=== PATIENT | male | born 1940 | race Caucasian/White ===

== ENCOUNTER 2017-06-24 14:33 | Emergency (ER) | payer MEDICARE, BC ==
[2017-06-24 15:03] VITALS: BP 156/94
[2017-06-24] MEDS ORDERED: Tetan/Diph/Pertus SYR(Tdap)* 0.5 ML SYR(BOOSTRIX) use SYR IM ONE ×2 (15:40→16:17)
--- NOTE | 2017-07-22 14:57 | UC ---
Skin Complaint HPI - HPI Summary HPI Summary: Cut finger last night on a serrated knife---wound reopened today --is concerned that tetanus is not updated - History of Current Complaint Chief Complaint: UCLaceration Time Seen by Provider: 06/24/17 15:30 Stated Complaint: FINGER COMPLAINT Hx Obtained From: Patient Onset/Duration: Sudden Onset, Lasting Days - 1, Still Present Timing: Constant Onset Severity: Moderate Current Severity: None Pain Intensity: 0 Pain Scale Used: 0-10 Numeric Location: Discrete Aggravating Factor(s): Nothing Alleviating Factor(s): Nothing Associated Signs & Symptoms: Positive: Negative Related History: Trauma - Allergy/Home Medications Allergies/Adverse Reactions: Allergies Allergy/AdvReac Type Severity Reaction Status Date / Time MS Lisinopril [Lisinopril] Allergy Coughing Verified 06/24/17 14:52 Review of Systems Constitutional: Negative Skin: Other - laceration left thumb Eyes: Negative ENT: Negative Respiratory: Negative Cardiovascular: Negative Gastrointestinal: Negative Genitourinary: Negative Motor: Negative Neurovascular: Negative Musculoskeletal: Negative Neurological: Negative Psychological: Negative Is Patient Immunocompromised?: No All Other Systems Reviewed And Are Negative: Yes PMH/Surg Hx/FS Hx/Imm Hx Previously Healthy: No Cardiovascular History: Cardiac Disease, Hypertension GI/ History: Gastroesophageal Reflux - Surgical History Surgical History: Yes - Social History Occupation: Retired Lives: With Family Alcohol Use: Daily Alcohol Amount: 2 drinks/ day Substance Use Type: None Smoking Status (MU): Never Smoked Tobacco - Immunization History Most Recent Influenza Vaccination: 2012 Most Recent Tetanus Shot: 2006 Most Recent Pneumonia Vaccination: 2005 Physical Exam Triage Information Reviewed: Yes Appearance: Well-Appearing, No Pain Distress, Well-Nourished Vital Signs: Initial Vital Signs Temp 97.9 F 06/24/17 14:55 Pulse 61 06/24/17 14:55 Resp 14 06/24/17 14:55 BP 156/94 06/24/17 14:55 Pulse Ox 99 06/24/17 14:55 Vital Signs Reviewed: Yes Eye Exam: Normal Eyes: Positive: Conjunctiva Clear ENT Exam: Normal ENT: Positive: Normal ENT inspection, Hearing grossly normal. Negative: Trismus , Muffled voice, Hoarse voice Dental Exam: Normal Neck exam: Normal Neck: Positive: Supple, Nontender Respiratory Exam: Normal Respiratory: Positive: Chest non-tender, No respiratory distress, No accessory muscle use Cardiovascular Exam: Normal Cardiovascular: Positive: RRR, Pulses Normal, Brisk Capillary Refill Musculoskeletal Exam: Normal Musculoskeletal: Positive: Strength Intact, ROM Intact, No Edema Neurological Exam: Normal Neurological: Positive: Alert, Muscle Tone Normal Psychological Exam: Normal Psychological: Positive: Normal Response To Family Skin Exam: Normal - on left thumb approximated and not bleeding, Other Skin: Positive: Other Course/Dx - Course Course Of Treatment: up date tetanus, dsd wash daily observe for s/s of infection follow with pcp - Diagnoses Provider Diagnoses: Left thumb laceration no repair, up date tetanus, hypertension in poor control Discharge - Discharge Plan Condition: Stable Disposition: HOME Patient Education Materials: Diphtheria/Acellular Pertussis/Tetanus Booster Vaccine (By injection), Skin Avulsion (ED) Referrals: Yuan Ybarra MD [Primary Care Provider] - If Needed
== END 2017-06-24 16:24 | disposition home or self-care (01) ==
LOC: UCEAST 14:33
DX: S61.012A Laceration without foreign body of left thumb without damage to nail, initial encounter (principal); W26.0XXA Contact with knife, initial encounter; Y93.9 Activity, unspecified; Y92.9 Unspecified place or not applicable; Z23 Encounter for immunization; I11.9 Hypertensive heart disease without heart failure; K21.9 Gastro-esophageal reflux disease without esophagitis; Z88.8 Allergy status to other drugs, medicaments and biological substances
CPT/HCPCS: 90715; 99212; G0463

== ENCOUNTER 2017-12-02 07:30 | Inpatient (IN) | payer MEDICARE, BC ==
--- NOTE | 2017-11-19 13:06 | RAD ---
INDICATION: Hypertension COMPARISON: July 03, 2011 TECHNIQUE: PA and lateral dual-energy views were obtained. FINDINGS: Bones/Soft Tissues: There are no acute bony findings. There are clips in left axilla Cardiomediastinal: The cardiomediastinal silhouette is normal. Lungs: There are no infiltrates. There is mild hyperinflation Pleura: There are no pleural effusions. Other: None IMPRESSION: NO ACTIVE DISEASE.
--- NOTE | 2017-11-19 21:20 | HP ---
HISTORY AND PHYSICAL: DATE OF ADMISSION/SURGERY: 12/02/17 DATE OF OFFICE VISIT: 11/19/17 SURGEON: Ailssa Morel MD * (DICTATED BY BERNARDO RODAS) PROCEDURE: Right total knee arthroplasty. CHIEF COMPLAINT: Right knee pain. HISTORY OF PRESENT ILLNESS: Mr. Cruz is a 77-year-old gentleman with continued complaints of right knee pain. He has failed conservative management and elected to proceed with a right total knee arthroplasty, which is scheduled for 12/02/[address] Morel. PAST MEDICAL HISTORY: Hypertension, mitral valve regurgitation, thoracic aortic ectasia, GERD, cardiac stent, and melanoma. PAST SURGICAL HISTORY: Cardiac stent placement, melanoma removal, tonsillectomy , and adenoidectomy. CURRENT MEDICATIONS: 1. Toprol 50 mg daily. 2. Aspirin 81 mg daily. 3. Atorvastatin calcium 80 mg daily. 4. Nitrostat 0.4 mg sublingual as needed. 5. Losartan potassium/hydrochlorothiazide 100/12.5 mg every morning. 6. Omeprazole 40 mg daily. 7. Multivitamin. 8. Felodipine ER 2.5 mg daily. 9. Tylenol Extra Strength as needed. ALLERGIES: To ENALAPRIL. FAMILY HISTORY: Coronary artery disease, diabetes, cancer, and stroke. SOCIAL HISTORY: He is a 77-year-old gentleman, lives with his . He does not smoke or use drugs. He uses alcohol occasionally. REVIEW OF SYSTEMS: A complete 14-point review of systems was reviewed with the patient. It is positive for GERD. He denies history of DVT, PE, hepatitis, HIV , or anesthesia problems. PHYSICAL EXAMINATION GENERAL: He is well developed, well nourished, in no acute distress. VITAL SIGNS: He stands 71 inches tall, weighs 275 pounds. His blood pressure is 119/69 and heart rate is 72. HEENT: Normocephalic, atraumatic. NECK: Supple. No palpable lymph nodes. PULMONARY: The lungs are clear to auscultation bilaterally. CARDIO: Regular rate and rhythm. Strong S1, S2. ABDOMEN: Soft, nontender, nondistended. NEUROLOGICAL: Alert and oriented x3. MUSCULOSKELETAL: Right lower extremity, the skin is intact. There are no open wounds or abrasions. Some tenderness over the medial and lateral joint line. There is a moderate joint effusion. Range of motion is 10 to 120 degrees of flexion with a 15-degree valgus deformity and MCL laxity. 2+ dorsalis pedis pulses. Intact sensation in his lower extremity. Muscle group strengths are intact at 5/5. ASSESSMENT AND PLAN: Mr. Cruz is a 77-year-old gentleman with end-stage osteoarthritis of his right knee. He has failed conservative management and elected to proceed with a right total knee arthroplasty, which is scheduled for 12/02/[address] Morel discussed the risks and benefits of the surgery at today's visit and all of his questions were answered. He will follow up with Dr. Morel 2 weeks after the surgery. BERNARDO RODAS [id number]/CPS #: [id number] MTDD
[~2017-12-02 07:30] MED LIST: Buffered Lidocaine 0.9% SYRIN* 5 ML/SYR SYRINGE INTRADERM ONE; Dexamethasone TAB* 4 MG PO ONE; DiMENhydriNATE IV* 50 MG/ML VIAL IV PUSH PRN; Famotidine IV* 10 MG/ML 2 ML (20 mg) IV ONE; Gabapentin CAP(*) 300 MG PO ONE; Morphine INJ* 2 MG/ML 1 ML CARPUJECT IV PRN; Naloxone* 0.4 MG/ML 1 ML VIAL IV PRN; Ondansetron INJ* 2 MG/ML VIAL ONE; PROCHLORPERAZINE INJ 5 MG/ML 2 ML VIAL IV PRN; Scopolamine 1.5 mg* PATCH TRANSDERM PRN; fentaNYL* 50 MCG/ML 2 ML VIAL (100 MCG VIAL) IV PRN
[2017-12-02] MEDS ORDERED: Gabapentin CAP(*) 100 MG ONE (08:42)
[2017-12-02] MEDS ORDERED: Dexamethasone TAB* 4 MG ONE (08:43)
[2017-12-02] MEDS ORDERED: Famotidine IV* 10 MG/ML 2 ML (20 mg) ONE (08:43)
[2017-12-02] MEDS ORDERED: ceFAZolin 1 GM in Dextrose (*) 1 GM/50 ML BAG IVPB ONE (08:43)
[2017-12-02] MEDS ORDERED: Ondansetron ODT TAB* 4 MG ONE (08:43)
[2017-12-02] MEDS ORDERED: Gabapentin CAP(*) 400 MG PO ONE (08:43)
[2017-12-02] MEDS ORDERED: ceFAZolin 2 GM PREMIX (*) 2 GM/50 ML BAG IVPB ONE (08:44)
[2017-12-02] MEDS ORDERED: fentaNYL* 50 MCG/ML 2 ML VIAL (100 MCG VIAL) ONE (08:55)
[2017-12-02] MEDS ORDERED: Midazolam* 1 MG/ML 10 ML VIAL (10 MG) ONE (08:55)
[2017-12-02] MEDS ORDERED: KETAMINE HCL* 50 MG/ML 10 ML VIAL ONE (08:55)
[2017-12-02] MEDS ORDERED: Tranexamic Acid 1,000 MG/10 ML SDV IV ONE (11:11)
[2017-12-02] MEDS ORDERED: Bupivacaine 0.5% SDV PF* 30ML VIAL ONE (12:48)
[2017-12-02] MEDS ORDERED: Bupivacaine 0.5% PF 10 ML VIAL INJ ONE (12:54)
[2017-12-02] MEDS ORDERED: Metoprolol Tartrate IV* 1 MG/ML 5 ML VIAL ONE (12:54)
[2017-12-02] MEDS ORDERED: hydrALAZINE IV* 20 MG/ML VIAL ONE (12:54)
[2017-12-02] MEDS ORDERED: Labetalol IV* 5 MG/ML 20 ML VIAL ONE (13:28)
[2017-12-02] MEDS ORDERED: diPHENhydraMINE IV* 50 MG/ML 1 ml VIAL (BENADRYL) IV PRN (14:16)
[2017-12-02] MEDS ORDERED: Morphine VIAL* 4 MG/ML VIAL (1 ml vial) IV PRN (14:16)
[2017-12-02] MEDS ORDERED: Acetaminophen TAB* 325 MG PO PRN (14:16)
[2017-12-02] MEDS ORDERED: Ondansetron 40 MG VIAL* 2 MG/ML 20 ML VIAL IV PRN (14:16)
[2017-12-02] MEDS ORDERED: Bisacodyl SUPP* 10 MG SUPP PR PRN (14:16)
[2017-12-02] MEDS ORDERED: Magnesium Hydroxide LIQ* 30 ML UDC PO PRN (14:16)
--- NOTE | 2017-12-02 15:21 | RAD ---
INDICATION: Postoperative right knee arthroplasty COMPARISON: June 30, 2017 TECHNIQUE: AP and lateral views were obtained. FINDINGS: There is right knee arthroplasty. Both femoral and tibial components appear well seated. There is no overlying cooling jacket IMPRESSION: RIGHT KNEE ARTHROPLASTY.
[2017-12-02] MEDS ORDERED: Warfarin TAB(*) 6 MG PO ONE (17:00)
[2017-12-02] MEDS: oxyCODONE/Acetamin 5/325 MG* TAB PO PRN (18:46)
[2017-12-02] MEDS: oxyCODONE TAB* 5 MG TAB PO PRN (21:28)
[2017-12-02] MEDS: Docusate CAP* 100 MG PO SCH (21:28)
[2017-12-02] MEDS: ceFAZolin 1 GM in Dextrose (*) 1 GM/50 ML BAG IVPB SCH (21:29)
[2017-12-02] MEDS: Magnesium Hydroxide LIQ* 30 ML UDC PO SCH (21:35)
--- NOTE | 2017-12-02 21:38 | CONS ---
CC: Dr. Morel* CONSULTATION REPORT: DATE OF CONSULT: 12/02/17 ATTENDING HOSPITALIST: Portillo Ortiz MD REFERRED FROM: Dr. Morel from Orthopedics. PRIMARY CARE PHYSICIAN: Lexie Ortiz MD PROCEDURES DONE: Right total knee arthroplasty. CHIEF COMPLAINT: 1. Right knee pain. 2. Medical co-management. HISTORY OF PRESENT ILLNESS: Mr. Cruz is a pleasant 77-year-old gentleman who has past medical history significant for hypertension, [place] with angiography and cardiac stent as well as history of hyperlipidemia and mitral valve regurgitation who was seen by the orthopedic group of [facility] in consideration for right knee arthroplasty. The patient has been suffering from chronic right knee pain and osteoarthritis for long time. He had tried multiple conservative measures to control his pain that unfortunately failed. He was evaluated by the orthopedic group and found to be a good candidate for right knee arthroplasty to be performed on a later date. The patient was admitted earlier today and was taken to the operating room where he had a right knee arthroplasty by Dr. Morel that was essentially unremarkable. During his postoperative period, he was comfortable and we were asked to see the patient for medical co-management given his past medical history. At the time of consultation, he appears to be comfortable and denies any pain. He denies any chest discomfort, palpitation, abdominal pain, nausea, or vomiting. PAST MEDICAL HISTORY: As mentioned above, significant for: 1. Hypertension. 2. Hyperlipidemia. 3. Coronary artery disease. 4. GERD. 5. Thoracic aortic ectasia. 6. Mitral valve regurgitation. 7. History of chest wall melanoma. PAST SURGICAL HISTORY: Significant for: 1. Cardiac stent placement back in 2014. 2. Melanoma removal from chest wall. 3. Tonsillectomy. 4. Adenoidectomy. 5. Most recently, right total knee arthroplasty. CURRENT MEDICATIONS: His medications at home include: 1. Aspirin 81 mg p.o. daily. 2. Lipitor 80 mg p.o. daily. 3. Felodipine 2.5 mg p.o. q.a.m. 4. Losartan/hydrochlorothiazide 100/12.5 one tablet p.o. daily. 5. Metoprolol 50 mg p.o. daily. 6. Multivitamin 1 tablet p.o. daily. 7. Nitroglycerin 0.4 mg sublingual every 5 minutes as needed for anginal pain. 8. Omeprazole 40 mg p.o. daily. ALLERGIES: He is allergic to ENALAPRIL and LISINOPRIL. SOCIAL HISTORY: The patient is a retired [employer] professor. He lives with his . He denies smoking and he drinks alcohol occasionally. His is a healthcare proxy carrier. FAMILY HISTORY: Significant for coronary artery disease, diabetes, and stroke. REVIEW OF SYSTEMS: See HPI, otherwise 14-point review of systems were reviewed and otherwise negative. PHYSICAL EXAMINATION: General: He is a pleasant, obese gentleman, healthy appearing and in no acute distress or discomfort at the time of consultation. Vitals revealed temperature of 97.2, pulse of 77, blood pressure of 116/71, respirations of 17, and O2 sat of 95% on 4 L oxygen. HEENT: Head is normocephalic, atraumatic. Sclerae anicteric. PERRLA. EOMs intact. Oropharynx is pink and moist. Neck: Supple. Trachea midline. No cervical adenopathy or thyromegaly. Lungs: Clear to auscultation bilaterally. Heart: Regular rate and rhythm. Normal S1 and S2 without rubs, murmurs or gallops. Back: With normal curvature. No CVA tenderness. Abdomen: Soft, nontender, and nondistended. No hernias, masses, or hepatosplenomegaly. Extremities: Without cyanosis, clubbing, or edema. Right lower extremity with Johnson wrap surrounding the knee as well as circulating cooling device. Sensation and pedal pulse intact distally. Neurologic: He is alert and oriented x3, otherwise neurological exam is grossly normal. Rectal exam deferred at this time. ASSESSMENT: A 77-year-old gentleman with past medical history significant for hypertension, hyperlipidemia, coronary artery disease for which he had cardiac catheterization with stent placement back in 2014 who is postop day #0 status post right total knee arthroplasty. RECOMMENDATION AND PLANS: 1. Status post right total knee arthroplasty. Management is per ortho team. The patient will likely initiate a PT/OT evaluation and treatment starting tomorrow. He will be anticoagulated per orthopedic group. He will start on Lovenox subcu and bridge to Coumadin. He appears to be comfortable and he has no complaints of pain at this time. 2. Hypertension. We will continue his metoprolol, calcium channel lee as well as losartan. 3. Coronary artery disease. We will continue his low dose of aspirin as well as metoprolol. 4. Sleep apnea. The patient per history has episodes of snoring per ; however, he has never been tested for sleep apnea before. We will continue monitoring him and provide oxygen supplementation likely to use CPAP at night if indicated. 5. DVT prophylaxis. Per ortho team, subcu Lovenox and bridging to p.o. Coumadin prior to discharge. 6. Code status. He is a full code. TIME SPENT: Approximately 45 minutes was spent admitting this patient with greater than 50% taking history and performing physical exam. I discussed the case with Dr. Ortiz who agreed to plans of care and we will follow him up accordingly. Thank you for this consultation. BERNARDO FIELDS [id number]/CPS #: [id number] MTDD
[2017-12-03] MEDS: oxyCODONE/Acetamin 5/325 MG* TAB PO PRN ×5 (00:45→20:11)
[2017-12-03] MEDS: ceFAZolin 1 GM in Dextrose (*) 1 GM/50 ML BAG IVPB SCH ×2 (04:04→12:12)
[2017-12-03] MEDS: Omeprazole CAP* 20 MG PO SCH (07:08)
[2017-12-03 07:16] LABS: Hematocrit 39 % (42-52); Hemoglobin 13.4 g/dl (14.0-18.0); Mean Platelet Volume 8.5 um3 (7.4-10.4); Platelet Count 193 10^3/ul (150-450)
[2017-12-03 07:19] LABS: INR 1.06 (0.77-1.02)
[2017-12-03 07:23] LABS: EGFR Non-African American 99.7 (>60)
[2017-12-03] MEDS: Atorvastatin* 80 MG TAB PO SCH (08:21)
[2017-12-03] MEDS: Vitamin THERAPEUTIC TAB PO SCH (08:21)
[2017-12-03] MEDS: Magnesium Hydroxide LIQ* 30 ML UDC PO SCH ×2 (08:21→20:11)
[2017-12-03] MEDS: amLODIPine TAB* 5 MG PO SCH (08:21)
[2017-12-03] MEDS: Docusate CAP* 100 MG PO SCH ×2 (08:21→20:12)
[2017-12-03] MEDS: Hydrochlorothiazide TAB* 25 MG PO SCH (08:22)
[2017-12-03] MEDS: Metoprolol Succinate XL TAB* 50 MG PO SCH (08:22)
[2017-12-03] MEDS: Losartan TAB* 25 MG PO SCH (08:23)
[2017-12-03] MEDS: Aspirin EC TAB* 81 MG TAB.EC PO SCH (08:23)
--- NOTE | 2017-12-03 11:55 | PN ---
Progress Note - Progress Note Date of Service: 12/03/17 SOAP: Subjective: [Pt seen this am sitting up in chair. States pain is 4/10. States he slept for a few hours last night. No complaints at this point. Denies any chest pain, SOB , numbness, tingling, nausea or vomiting. ] Objective: [General: pt is awake, alert and oriented. NAD MSK, RLE: Dressing c/d/i, +df/pf, no pain with palpation of calf. sensation intact to light touch. 2+ DP pulse ] Vital Signs Temp 97.8 F 12/03/17 07:19 Pulse 78 12/03/17 07:19 Resp 18 12/03/17 09:59 BP 156/85 12/03/17 07:19 Pulse Ox 93 12/03/17 09:59 Intake & Output 12/02/17 12/03/17 12/03/17 18:59 06:59 18:59 Intake Total 1999 1589 225 Output Total 2049 1625 Balance -50 -36 225 Weight 278 lb Intake: IV Fluids 1999 984 LR 1999 984 IVPB 55 ABX - CEFAZOLIN 55 Oral 550 225 Output: [place] 1800 1625 Residual 50 [place] 16 Fr 50 Estimated Blood Loss 200 Other: # Bowel Movements 0 Assessment: [POD 1 RTKA ] Plan: [- continue with current pain medication - 4mg of warfarin this evening - continue with PT/OT - possible dc tomorrow should he meet all goals. ]
[2017-12-03] MEDS: Enoxaparin(*) 30 MG/0.3 ML SYR SUBCUT SCH (12:13)
--- NOTE | 2017-12-03 14:31 | PN ---
Subjective Date of Service: 12/03/17 Interval History: Patient in significant pain but states it is worse with movement but is tolerable. Patient has had flores out and is urinating well. Patient has been passing gas and denies CP, SOB, Dizziness, F/C, N/V, abdominal pain, dysuria, palpitations, numbness or tingling, or other pain. Patient has symptoms of CHEL but did not desaturate to a large degree on overnight oximetry. Family History: Unchanged from Admission Social History: Unchanged from Admission Past Medical History: Unchanged from Admission Objective Active Medications: Acetaminophen (Tylenol Tab*) 650 mg PO Q4H PRN PRN Reason: PAIN OR TEMPERATURE Amlodipine Besylate (Norvasc Tab*) 2.5 mg PO [facility]; Protocol Last Admin: 12/03/17 08:21 Dose: 2.5 mg Aspirin (Aspirin Ec Tab*) 81 mg PO [facility] Last Admin: 12/03/17 08:23 Dose: 81 mg Atorvastatin Calcium (Lipitor*) 80 mg PO [facility] Last Admin: 12/03/17 08:21 Dose: 80 mg Bisacodyl (Dulcolax Supp*) 10 mg NC DAILY PRN PRN Reason: constipation Diphenhydramine HCl (Benadryl Iv*) 25 mg IV Q6H PRN PRN Reason: itching Docusate Sodium (Colace Cap*) 100 mg PO BID [facility] Last Admin: 12/03/17 08:21 Dose: 100 mg Enoxaparin Sodium (Lovenox(*)) 30 mg SUBCUT Q24H [facility] Last Admin: 12/03/17 12:13 Dose: 30 mg Hydrochlorothiazide (Hydrodiuril Tab*) 12.5 mg PO [facility] Last Admin: 12/03/17 08:22 Dose: 12.5 mg Lactated Ringer's (Lactated Ringers 1000 Ml Bag*) 1,000 mls @ 100 mls/hr IV PER RATE [facility] Last Admin: 12/03/17 03:23 Dose: 100 mls/hr Lactulose (Lactulose*) 30 ml PO Q6H PRN PRN Reason: constipation Losartan Potassium (Cozaar Tab*) 100 mg PO [facility] Last Admin: 12/03/17 08:23 Dose: 100 mg Magnesium Hydroxide (Milk Of Magnesia Liq*) 30 ml PO BID [facility] Last Admin: 12/03/17 08:21 Dose: 30 ml Magnesium Hydroxide (Milk Of Magnesia Liq*) 30 ml PO Q6H PRN PRN Reason: constipation Metoprolol Succinate (Toprol Xl Tab*) 50 mg PO QAM [facility] Last Admin: 12/03/17 08:22 Dose: 50 mg Morphine Sulfate (Morphine Vial*) 2 mg IV Q2H PRN PRN Reason: PAIN Multivitamins (Theragran Tab*) 1 tab PO DAILY [facility] Last Admin: 12/03/17 08:21 Dose: 1 tab Omeprazole (Prilosec Cap*) 40 mg PO QAM@0730 [facility] Last Admin: 12/03/17 07:08 Dose: 40 mg Ondansetron HCl (Zofran 40 Mg Vial*) 4 mg IV Q6H PRN PRN Reason: nausea Oxycodone HCl (Roxycodone Tab*) 10 mg PO Q4H PRN PRN Reason: PAIN - SEVERE Last Admin: 12/02/17 21:28 Dose: 10 mg Oxycodone/Acetaminophen (Percocet 5/325 Tab*) 2 tab PO Q4H PRN PRN Reason: PAIN Last Admin: 12/03/17 09:58 Dose: 2 tab Oxycodone/Acetaminophen (Percocet 5/325 Tab*) 1 tab PO Q4H PRN PRN Reason: PAIN Last Admin: 12/02/17 18:46 Dose: 1 tab Pharmacy Profile Note (Scopolamine Patch Remove*) 1 note PATCH OFF Q72H ONE Stop: 12/05/17 05:47 Vital Signs - 8 hr 12/03/17 12/03/17 12/03/17 07:08 07:19 07:58 Temperature 97.8 F Pulse Rate 78 Respiratory 18 17 17 Rate Blood Pressure 156/85 (mmHg) O2 Sat by Pulse 96 93 Oximetry 12/03/17 12/03/17 12/03/17 08:00 09:58 09:59 Temperature Pulse Rate Respiratory 18 18 18 Rate Blood Pressure (mmHg) O2 Sat by Pulse 93 Oximetry 12/03/17 12/03/17 12/03/17 11:21 12:00 12:11 Temperature 97.5 F Pulse Rate 70 Respiratory 17 18 18 Rate Blood Pressure 123/63 (mmHg) O2 Sat by Pulse 96 95 Oximetry Oxygen Devices in Use Now: None Appearance: Patient is a 77yo male who appears stated age and is sitting in the bed in NAD. Eyes: No Scleral Icterus, PERRLA Ears/Nose/Mouth/Throat: NL Teeth, Lips, Gums, Clear Oropharnyx, Mucous Membranes Moist Neck: NL Appearance and Movements; NL JVP, Trachea Midline Respiratory: Symmetrical Chest Expansion and Respiratory Effort, Clear to Auscultation Cardiovascular: NL Sounds; No Murmurs; No JVD, RRR, - - 1+ edema in RLE Abdominal: NL Sounds; No Tenderness; No Distention, No Hepatosplenomegaly Lymphatic: No Cervical Adenopathy Extremities: No Clubbing, Cyanosis, - - Right Knee incision covered in bulky dressing. Skin: No Rash or Ulcers, No Nodules or Sclerosis Neurological: Alert and Oriented x 3, NL Sensation, NL Muscle Strength and Tone , - - CN II-XII intact. Result Diagrams: 12/03/17 06:59 12/03/17 06:59 Assess/Plan/Problems-Billing Assessment: Patient is a 77yo Male with a PMH for HTN, HLD, MO, MVR, who is S/P RTKA and is doing well. - Patient Problems (1) Post-operative state Current Visit: Yes Status: Acute Code(s): Z98.890 - OTHER SPECIFIED POSTPROCEDURAL STATES SNOMED Code(s): 82681680 Comment: S/P RTKA, Management per primary team. H/H decreased to an expected degree, Will monitor. Pain better controlled. Urinating with flores out. No BM. PT/OT (2) HLD (hyperlipidemia) Current Visit: Yes Status: Acute Code(s): E78.5 - HYPERLIPIDEMIA, UNSPECIFIED SNOMED Code(s): 67669334 Comment: Continue statin. (3) HTN (hypertension) Current Visit: Yes Status: Acute Code(s): I10 - ESSENTIAL (PRIMARY) HYPERTENSION SNOMED Code(s): 64330217 Comment: Normotensive, Continue Amlodipine, Metoprolol, Losartan. (4) Snoring Current Visit: Yes Status: Acute Code(s): R06.83 - SNORING SNOMED Code(s) : 63932026 Comment: Monitor for overnight desaturations. Will need formal sleep study on discharge. (5) GERD (gastroesophageal reflux disease) Current Visit: Yes Status: Acute Code(s): K21.9 - GASTRO-ESOPHAGEAL REFLUX DISEASE WITHOUT ESOPHAGITIS SNOMED Code(s): 704511135 Comment: Continue Omeprazole. (6) CAD (coronary artery disease) Current Visit: Yes Status: Acute Code(s): I25.10 - ATHSCL HEART DISEASE OF [place] CORONARY ARTERY W/O ANG PCTRS SNOMED Code(s): 52625383 Comment: S/P MO. Continue ASA, BB, Lipitor, Losartan. No CP. (7) Thoracic aortic ectasia Current Visit: Yes Status: Acute Code(s): I77.810 - THORACIC AORTIC ECTASIA SNOMED Code(s): 945903518374115 Comment: Continue Beta Luna to avoid rapid changes in aortic pressure. (8) DVT prophylaxis Current Visit: Yes Status: Acute Code(s): NNW7087 - SNOMED Code(s): 298935155 Comment: Lovenox to warfarin. (9) Full code status Current Visit: Yes Status: Acute Code(s): Z78.9 - OTHER SPECIFIED HEALTH STATUS SNOMED Code(s): 842952770 Status and Disposition: Inpatient. Disposition per primary team.
[2017-12-03] MEDS ORDERED: Warfarin TAB(*) 4 MG PO ONE (17:07)
--- NOTE | 2017-12-03 21:34 | OP ---
DATE OF OPERATION: 12/02/17 - ROOM #349 DATE OF : 42 SURGEON: Alissa Morel MD NEWSWRITER: BERNARDO Sandoval. Mr. Rivera did help throughout the procedure with preparation of the leg, wound retraction, manipulation of the knee and wound closure. ANESTHESIOLOGIST: Dr. Robin. ANESTHESIA: Spinal. PRE-OP DIAGNOSIS: Severe end-stage degenerative osteoarthritis of the right knee joint with valgus deformity. POST-OP DIAGNOSIS: Severe end-stage degenerative osteoarthritis of the right knee joint with valgus deformity. OPERATIVE PROCEDURE: Right total knee arthroplasty. COMPLICATIONS: None. TOURNIQUET TIME: 44 minutes. ESTIMATED BLOOD LOSS: 200 cc. SPECIMEN: Bone and cartilage from the right knee sent to pathology. HARDWARE USED: This is [employer] cemented total knee arthroplasty hardware. Two packages of Simplex bone cement. For the femur, a size 7 right posterior stabilized Legion Oxinium femoral component. For the tibia, a size 7 Becki II right tibial base plate. For the insert, a 13-mm posterior stabilized articular insert size 7/8 and for the patella, 38-mm 3-peg all poly patella. BRIEF HISTORY/INDICATIONS: Mr. Cruz is a 77-year-old gentleman with years of increasingly severe right knee pain and feelings of instability. He did develop valgus deformity and severe arthritis on x-ray with [id number] contact. He failed conservative treatment with anti-inflammatories, brace wear , intra-articular injections and physical therapy. Due to continued pain and feelings of instability, the patient elected to undergo right total knee arthroplasty. Informed consent was obtained from the patient. He understood the risks of surgery included, but not were not limited to bleeding, infection, damage to nearby structures, continued pain, need for further surgery, intraoperative fracture, nerve palsy, hardware failure or loosening, knee stiffness, loss of motion, stroke, heart attack, blood clot and . He wished to proceed. INTRAOPERATIVE FINDINGS: Intraoperatively, the patient was noted to have significant valgus deformity of 12 degrees. He had recurvatum. He had full thickness cartilage loss in all three compartments with lateral compartment most affected. DESCRIPTION OF PROCEDURE: Mr. Cruz was identified in the preanesthesia unit. His right lower extremity was marked as correct side. Informed consent was signed and placed in the chart. The patient was taken to the operating room and placed under spinal anesthesia. A Eaton catheter was placed. Right lower extremity was prepped and draped in the usual sterile fashion. Preop time-out was made to correctly identify the patient's side and site. Appropriate perioperative antibiotics were given within 1 hour of incision. A midline incision was made with a 10 blade and carried down to the extensor mechanism. A new 10-blade was used to make a standard medial parapatellar arthrotomy. The patella was subluxed laterally. Electrocautery was used to sub -periosteally elevate soft tissue off the superomedial tibia to the mid sagittal plane. The knee was flexed up. A drill was used to enter the distal femur. Intramedullary distal femoral cutting guide was pinned on the distal femur. 9 mm of distal femur were carefully removed with an oscillating saw. Next, the external rotation guide was pinned on the distal femur. Distal femur was sized to a size 7. Size 7 multi-cutting jig was pinned on the distal femur. The four chamfer cuts were made with an oscillating saw. The PCL was completely released. The tibia was subluxed anteriorly. Extramedullary tibial cutting guide was pinned on the proximal tibia. Oscillating saw was used to make the proximal tibial cut perpendicular to the mechanical axis of the tibia. The proximal tibial bone cut was carefully removed. The knee was brought out into full extension. The spacer block had excellent fit. There was medial and lateral ligamentous balancing. Valgus deformity was much improved to anatomic 5 degrees. Flexion and extension gaps were well balanced. The knee was flexed up. Lamina alignment mechanic was placed both medially and laterally. Any remaining meniscus was carefully removed using electrocautery. Posterior osteophytes were removed using a curved osteotome. A size 7 right femoral trial was impacted on to the distal femur and had excellent fit. The box for the posterior stabilized implant was prepared using a reamer and box cut osteotome. Size 7 tibial tray trial with an 11 mm insert trial was placed. The knee was brought through range of motion and had full extension to 130 degrees of flexion. There was satisfactory patellofemoral tracking. Patella was everted. 9 mm of patellar bone and cartilage was carefully removed using an oscillating saw. Patella was sized to a size 38. The patella was prepared using a size 38 guide and drill. The trial 38 patella was placed and the knee was taken through range of motion. The knee had satisfactory patellofemoral tracking. All trials were carefully removed. The tibia was subluxed anteriorly and sized to a size 7. Proximal tibia was prepared using a size 7 keel punch. All bony surfaces were copiously irrigated with sterile saline and dried. Final implants were cemented into place starting with the tibia followed by the femur and lastly the patella. A 13-mm insert trial was placed and the knee was brought out into full extension. The knee was copiously irrigated with sterile saline. Electrocautery was used to obtain meticulous hemostasis. Once the cement had fully cured, the insert trial was removed. Any excess cement was removed from around the capsule and hardware. Final insert chosen was a 13-mm posterior stabilized articular insert Becki II size 7/8. This was locked into position on the tibial tray. Stability of the insert was checked and rechecked and noted to be stable. The knee was copiously irrigated with sterile saline. The extensor mechanism was closed using interrupted #1 Vicryl. The rest of the incisions was closed in a layered fashion using 0 and 2-0 Vicryls. Skin was closed using running 3- 0 nylon suture. Sterile Xeroform, 4x4s and Webril were used to cover the incision. Johnson wrap and cold pack were placed over this. Patient's anesthesia was reversed without difficulty. He was taken to the PACU in stable condition. Intended weightbearing will be weightbearing as tolerated. Intended DVT prophylaxis will be Coumadin with a Lovenox bridge. [id number]/[facility] #: [id number] TRENT
[2017-12-04] MEDS: oxyCODONE/Acetamin 5/325 MG* TAB PO PRN ×3 (00:30→12:02)
[2017-12-04 05:54] LABS: Hematocrit 36 % (42-52); Hemoglobin 12.4 g/dl (14.0-18.0); Mean Platelet Volume 8.4 um3 (7.4-10.4); Platelet Count 165 10^3/ul (150-450)
[2017-12-04 05:58] LABS: INR 1.17 (0.77-1.02)
[2017-12-04] MEDS: Omeprazole CAP* 20 MG PO SCH (07:50)
[2017-12-04] MEDS: Magnesium Hydroxide LIQ* 30 ML UDC PO SCH (08:03)
[2017-12-04] MEDS: amLODIPine TAB* 5 MG PO SCH (08:04)
[2017-12-04] MEDS: Docusate CAP* 100 MG PO SCH (08:04)
[2017-12-04] MEDS: Metoprolol Succinate XL TAB* 50 MG PO SCH (08:04)
[2017-12-04] MEDS: Vitamin THERAPEUTIC TAB PO SCH (08:04)
[2017-12-04] MEDS: Hydrochlorothiazide TAB* 25 MG PO SCH (08:05)
[2017-12-04] MEDS: Atorvastatin* 80 MG TAB PO SCH (08:05)
[2017-12-04] MEDS: Losartan TAB* 25 MG PO SCH (08:06)
[2017-12-04] MEDS: Aspirin EC TAB* 81 MG TAB.EC PO SCH (08:06)
[2017-12-04 11:50] VITALS: BP 121/61
[2017-12-04] MEDS: Enoxaparin(*) 30 MG/0.3 ML SYR SUBCUT SCH (12:03)
--- NOTE | 2017-12-04 12:53 | PN ---
Progress Note - Progress Note Date of Service: 12/04/17 SOAP: Subjective: [Pt seen this am sitting up in chair. States pain is continuing to improve. He states he is on an O2 monitor for possible sleep apnea. No complaints at this point. Denies any chest pain, SOB, numbness, tingling, nausea or vomiting. ] Objective: [General: pt is awake, alert and oriented. NAD MSK, RLE: Dressing c/d/i, changed today. Incision is clean dry and intact, no drainage or erythema present. +df/pf, no pain with palpation of calf. sensation intact to light touch. 2+ DP pulse ] Vital Signs Temp 97.5 F 12/04/17 11:44 Pulse 74 12/04/17 11:44 Resp 18 12/04/17 12:02 BP 121/61 12/04/17 11:44 Pulse Ox 97 12/04/17 11:44 Intake & Output 12/03/17 12/04/17 12/04/17 18:59 06:59 18:59 Intake Total 1639 0 Output Total 750 Balance 889 0 Intake: IV Fluids 1009 ABX - CEFAZOLIN 110 LR 899 Oral 630 0 Output: Urine 750 Other: Estimated Void Medium # Bowel Movements 0 # Voids 1 Assessment: [POD 2 RTKA ] Plan: [- continue with current pain medication - INR 1.17 - 6mg of warfarin this evening - continue with PT/OT - dc tomorrow should he meet all goals.
--- NOTE | 2017-12-04 14:43 | PN ---
Subjective Date of Service: 12/04/17 Interval History: Patient has significant desaturations overnight but was unable to tolerated CPAP mask provided. Discussed that he may need to try different masks until he finds the right one outpatient. Denies CP, SOB, N/V, F/C, abdominal pain, diarrhea, dysuria, or other pain. Persistent desaturations during the day on continuous monitoring not consistent with routine pulse oximetry readings. Family History: Unchanged from Admission Social History: Unchanged from Admission Past Medical History: Unchanged from Admission Objective Active Medications: Acetaminophen (Tylenol Tab*) 650 mg PO Q4H PRN PRN Reason: PAIN OR TEMPERATURE Amlodipine Besylate (Norvasc Tab*) 2.5 mg PO [facility]; Protocol Last Admin: 12/04/17 08:04 Dose: 2.5 mg Aspirin (Aspirin Ec Tab*) 81 mg PO [facility] Last Admin: 12/04/17 08:06 Dose: 81 mg Atorvastatin Calcium (Lipitor*) 80 mg PO [facility] Last Admin: 12/04/17 08:05 Dose: 80 mg Bisacodyl (Dulcolax Supp*) 10 mg [place] DAILY PRN PRN Reason: constipation Diphenhydramine HCl (Benadryl Iv*) 25 mg IV Q6H PRN PRN Reason: itching Docusate Sodium (Colace Cap*) 100 mg PO BID [facility] Last Admin: 12/04/17 08:04 Dose: 100 mg Enoxaparin Sodium (Lovenox(*)) 30 mg SUBCUT Q24H [facility] Last Admin: 12/04/17 12:03 Dose: 30 mg Hydrochlorothiazide (Hydrodiuril Tab*) 12.5 mg PO [facility] Last Admin: 12/04/17 08:05 Dose: 12.5 mg Lactulose (Lactulose*) 30 ml PO Q6H PRN PRN Reason: constipation Losartan Potassium (Cozaar Tab*) 100 mg PO [facility] Last Admin: 12/04/17 08:06 Dose: 100 mg Magnesium Hydroxide (Milk Of Magnesia Liq*) 30 ml PO BID [facility] Last Admin: 12/04/17 08:03 Dose: 30 ml Magnesium Hydroxide (Milk Of Magnesia Liq*) 30 ml PO Q6H PRN PRN Reason: constipation Metoprolol Succinate (Toprol Xl Tab*) 50 mg PO [facility] Last Admin: 12/04/17 08:04 Dose: 50 mg Morphine Sulfate (Morphine Vial*) 2 mg IV Q2H PRN PRN Reason: PAIN Multivitamins (Theragran Tab*) 1 tab PO DAILY [facility] Last Admin: 12/04/17 08:04 Dose: 1 tab Omeprazole (Prilosec Cap*) 40 mg PO QAM@0730 [facility] Last Admin: 12/04/17 07:50 Dose: 40 mg Ondansetron HCl (Zofran 40 Mg Vial*) 4 mg IV Q6H PRN PRN Reason: nausea Oxycodone HCl (Roxycodone Tab*) 10 mg PO Q4H PRN PRN Reason: PAIN - SEVERE Last Admin: 12/02/17 21:28 Dose: 10 mg Oxycodone/Acetaminophen (Percocet 5/325 Tab*) 2 tab PO Q4H PRN PRN Reason: PAIN Last Admin: 12/04/17 12:02 Dose: 2 tab Oxycodone/Acetaminophen (Percocet 5/325 Tab*) 1 tab PO Q4H PRN PRN Reason: PAIN Last Admin: 12/04/17 00:30 Dose: 1 tab Pharmacy Profile Note (Scopolamine Patch Remove*) 1 note PATCH OFF Q72H ONE Stop: 12/05/17 05:47 Pharmacy Profile Note (Coumadin Daily Reminder*) 1 note FOLLOW UP 1700 [facility] Warfarin Sodium (Coumadin Tab(*)) 6 mg PO ONCE@1700 [facility]; Protocol Stop: 12/04/17 17:01 Vital Signs - 8 hr 12/04/17 12/04/17 12/04/17 07:24 08:00 08:06 Temperature 98.9 F Pulse Rate 83 Respiratory 17 18 16 Rate Blood Pressure 168/80 (mmHg) O2 Sat by Pulse 95 88 Oximetry 12/04/17 12/04/17 12/04/17 09:26 10:19 10:50 Temperature Pulse Rate 77 Respiratory 16 18 Rate Blood Pressure (mmHg) O2 Sat by Pulse 94 94 Oximetry 12/04/17 12/04/17 11:44 12:02 Temperature 97.5 F Pulse Rate 74 Respiratory 18 18 Rate Blood Pressure 121/61 (mmHg) O2 Sat by Pulse 97 Oximetry Oxygen Devices in Use Now: None Appearance: Patient is a 77yo male who appears stated age and is sitting in the bed in NAD.r Eyes: No Scleral Icterus, PERRLA Ears/Nose/Mouth/Throat: NL Teeth, Lips, Gums, Clear Oropharnyx, Mucous Membranes Moist Neck: NL Appearance and Movements; NL JVP, Trachea Midline Respiratory: Symmetrical Chest Expansion and Respiratory Effort, Clear to Auscultation, - - Egophony negative. Cardiovascular: NL Sounds; No Murmurs; No JVD, RRR, No Edema Abdominal: NL Sounds; No Tenderness; No Distention, No Hepatosplenomegaly Lymphatic: No Cervical Adenopathy Extremities: No Edema, No Clubbing, Cyanosis, - - Left knee incision covered with dressing. Skin: No Nodules or Sclerosis Neurological: Alert and Oriented x 3, NL Sensation, NL Muscle Strength and Tone , - - CN II-XII intact. Result Diagrams: 12/04/17 05:33 12/03/17 06:59 Assess/Plan/Problems-Billing Assessment: Patient is a 77yo Male with a PMH for HTN, HLD, HI, MVR, who is S/P RTKA and is doing well. - Patient Problems (1) Post-operative state Current Visit: Yes Status: Acute Code(s): Z98.890 - OTHER SPECIFIED POSTPROCEDURAL STATES SNOMED Code(s): 67308855 Comment: S/P RTKA, Management per primary team. H/H decreased to an expected degree, Will monitor. Pain better controlled. Urinating with flores out. No BM. PT/OT (2) HLD (hyperlipidemia) Current Visit: Yes Status: Acute Code(s): E78.5 - HYPERLIPIDEMIA, UNSPECIFIED SNOMED Code(s): 38911693 Comment: Continue statin. (3) HTN (hypertension) Current Visit: Yes Status: Acute Code(s): I10 - ESSENTIAL (PRIMARY) HYPERTENSION SNOMED Code(s): 31039653 Comment: Normotensive, Continue Amlodipine, Metoprolol, Losartan. (4) Snoring Current Visit: Yes Status: Acute Code(s): R06.83 - SNORING SNOMED Code(s) : 01555906 Comment: Monitor for overnight desaturations. Will need formal sleep study on discharge. Unable to tolerate CPAP. Daytime desaturations likely artifactual. (5) GERD (gastroesophageal reflux disease) Current Visit: Yes Status: Acute Code(s): K21.9 - GASTRO-ESOPHAGEAL REFLUX DISEASE WITHOUT ESOPHAGITIS SNOMED Code(s): 493394120 Comment: Continue Omeprazole. (6) CAD (coronary artery disease) Current Visit: Yes Status: Acute Code(s): I25.10 - ATHSCL HEART DISEASE OF [place] CORONARY ARTERY W/O ANG PCTRS SNOMED Code(s): 78217028 Comment: S/P HI. Continue ASA, BB, Lipitor, Losartan. No CP. (7) Thoracic aortic ectasia Current Visit: Yes Status: Acute Code(s): I77.810 - THORACIC AORTIC ECTASIA SNOMED Code(s): 356919579401654 Comment: Continue Beta Luna to avoid rapid changes in aortic pressure. (8) DVT prophylaxis Current Visit: Yes Status: Acute Code(s): ZWZ0799 - SNOMED Code(s): 169906285 Comment: Lovenox to warfarin. (9) Full code status Current Visit: Yes Status: Acute Code(s): Z78.9 - OTHER SPECIFIED HEALTH STATUS SNOMED Code(s): 279273708 Status and Disposition: Inpatient. Disposition per primary team.
[2017-12-04] MEDS: oxyCODONE TAB* 5 MG TAB PO PRN (15:44)
--- NOTE | 2017-12-04 15:44 | RAD ---
Indication: Possible hypoxia. Comparison: November 19, 2017 Technique: Upright AP 1120 hours. Report: Mild predominant linear bibasilar pulmonary opacities most suspicious for subsegmental atelectasis. Elevated lung volumes with patchy rarefaction of the mid to upper lung zone interstitial markings. Grossly clear pleural spaces. Negative for pneumothorax. Cardiomegaly. Retrocardiac opacity without significant change accounting for difference in technique may represent enlarged LEFT atrium or hiatal hernia. Unremarkable central pulmonary vasculature. IMPRESSION: #. Mild bibasilar atelectasis. #. Negative for pulmonary edema. #. Retrocardiac opacity without significant change accounting for difference in technique may represent enlarged LEFT atrium or hiatal hernia.
[2017-12-04] MEDS ORDERED: Warfarin TAB(*) 6 MG PO SCH (17:00)
--- NOTE | 2017-12-05 01:44 | DS ---
DISCHARGE SUMMARY: DATE OF ADMISSION: 12/02/17 DATE OF DISCHARGE: 12/04/17 ATTENDING PROVIDER: Dr. Morel * (DICTATED BY BERNARDO RODAS) PRINCIPAL DIAGNOSIS: Severe end-stage osteoarthritis of the right knee. DISCHARGE DIAGNOSIS: Severe end-stage osteoarthritis of the right knee. HISTORY OF PRESENT ILLNESS: Mr. Cruz is a 77-year-old gentleman with severe end- stage arthritis with a valgus deformity of his right knee. He failed conservative management and elected to proceed with a right total knee arthroplasty. HOSPITAL COURSE: Mr. Cruz was admitted electively to the hospital on . He underwent a right total knee arthroplasty. He tolerated the procedure well without complications. Postoperatively, he was placed on Lovenox and Coumadin for DVT prophylaxis. On postoperative day 1, his H and H was 13 and 39 ; postoperative day 2, 12 and 36. His INR went from 1.06 on postoperative day 1 to 1.17 on postoperative day 2. At the time of discharge, he was afebrile, he was ambulating well, his wound was clean and dry. He was discharged home in stable condition. DISCHARGE MEDICATIONS: 1. Percocet 5/325, 1 to 2 tabs every 4 to 6 hours as needed for pain. 2. Colace 100 mg 1 tab 2 to 3 times daily as needed for constipation. 3. Coumadin 2 mg tabs. 4. Norvasc 2.5 mg daily. 5. Lipitor 80 mg daily. 6. Hydrochlorothiazide 12.5 mg daily. 7. Losartan potassium 100 daily. 8. Toprol 50 mg daily. PHYSICAL EXAM UPON DISCHARGE: He is afebrile. His vital signs are stable. His wound was clean, dry, healing well. He was ambulating well with aid of a walker and he is distally neurovascularly intact. DISCHARGE INSTRUCTIONS: He was discharged home. He is given a prescription for Percocet for pain, Colace for constipation, Coumadin. His INR at the time of discharge was 1.17, he was asked to take 8 mg of Coumadin tonight, 6 mg Friday night, 6 mg Friday, and 4 mg Friday night. VNS to recheck his INR on Friday. His weightbearing as tolerated. He can start showering on Friday, letting the soap and water run over the incision, pat the area dry. No baths, pools, or hot tubs. He will see Dr. Morel back in 2 weeks. BERNARDO RODAS [id number]/[facility] #: [id number] MTDD
[2017-12-05] MEDS ORDERED: Scopolamine PATCH Remove* 1 NOTE MISC PATCH OFF ONE (05:46)
== END 2017-12-04 16:14 | disposition home health service (06) | DRG 470 ==
LOC: AA 08:33 → SSU 16:05
PROVIDERS: ADMIT Orthopaedic Surgery Adult Reconstructive Orthopaedic Surgery; ATTEND Orthopaedic Surgery Adult Reconstructive Orthopaedic Surgery
PROC: 0SRC069 Replacement of Right Knee Joint with Oxidized Zirconium on Polyethylene Synthetic Substitute, Cemented, Open Approach (ICD-10-PCS; principal; 2017-12-02 11:00)
PROC: 5A09357 Assistance with Respiratory Ventilation, Less than 24 Consecutive Hours, Continuous Positive Airway Pressure (ICD-10-PCS; 2017-12-04)
DX: M17.11 Unilateral primary osteoarthritis, right knee (principal); M21.061 Valgus deformity, not elsewhere classified, right knee; M25.461 Effusion, right knee; H91.90 Unspecified hearing loss, unspecified ear; I25.10 Atherosclerotic heart disease of native coronary artery without angina pectoris; I45.10 Unspecified right bundle-branch block; I27.20 Pulmonary hypertension, unspecified; E78.5 Hyperlipidemia, unspecified; K21.9 Gastro-esophageal reflux disease without esophagitis; I77.810 Thoracic aortic ectasia; I34.0 Nonrheumatic mitral (valve) insufficiency; I10 Essential (primary) hypertension; R06.83 Snoring; M25.761 Osteophyte, right knee; G89.29 Other chronic pain; E66.9 Obesity, unspecified; Z79.01 Long term (current) use of anticoagulants; Z95.5 Presence of coronary angioplasty implant and graft; Z85.820 Personal history of malignant melanoma of skin; Z88.8 Allergy status to other drugs, medicaments and biological substances; Z82.49 Family history of ischemic heart disease and other diseases of the circulatory system; Z83.3 Family history of diabetes mellitus; Z82.3 Family history of stroke; Z80.9 Family history of malignant neoplasm, unspecified; Z68.38 Body mass index [BMI] 38.0-38.9, adult; I25.2 Old myocardial infarction; Z72.89 Other problems related to lifestyle
CPT/HCPCS: 36415; 71045; 71046; 80048; 85014; 85018; 85049; 85610; 94660; A9270-GY; C1776; G8978-GP-CJ; G8979-GP-CI; G8987-GO-CJ; G8988-GO-CI; J0360; J0690; J1650; J2250; J3010; J3490; J8540